=== PATIENT | female | born 1955 | race African-American/Black ===

== ENCOUNTER 2021-11-22 18:20 | Emergency (ER) | payer MEDICAID ==
[~2021-11-22] VITALS: Ht 154.9 cm; Wt 64.9 kg
[2021-11-22 18:31] VITALS: BP 186/94
--- NOTE | 2021-11-22 18:31 | NUR ---
PT CARLOS ENRIQUE LIANG, VIA GURNEY TO BED 03.
--- NOTE | 2021-11-22 19:27 | NUR ---
Pt report given to POWER Walker. Transfer of care at this time.
--- NOTE | 2021-11-22 19:54 | NUR ---
Dr. Mcgill examining patient.
[2021-11-22] MEDS ORDERED: MORPHINE SULFATE 4 MG/ML SYR IVP ONE ×2 (20:35→22:35)
--- NOTE | 2021-11-22 20:45 | NUR ---
Patient resting comfortably in bed, no c/o pain or s/s of discomfort, chest rise and fall symmetrical.
[2021-11-22 20:53] LABS: BASOPHILS # (AUTO) 0.1 K/uL (0.00-0.22); BASOPHILS % (AUTO) 0.7 % (0.0-2.0); EOSINOPHILS # (AUTO) 0.2 K/uL (0-0.4); EOSINOPHILS % (AUTO) 2.2 % (0.0-4.0); HEMATOCRIT 21.4 % (36-48); HEMOGLOBIN 7.5 g/dL (12.0-16.0); LYMPHOCYTES % (AUTO) 21.5 % (20.5-51.1); MEAN CORPUSCULAR HEMOGLOBIN 31 pg (27-31); MEAN CORPUSCULAR HGB CONC 35 g/dL (33-37); MEAN CORPUSCULAR VOLUME 88.1 fL (80-94); MONOCYTES # (AUTO) 0.8 K/uL (0.8-1.0); MONOCYTES % (AUTO) 9.1 % (1.7-9.3); NEUTROPHILS # (AUTO) 6.1 K/uL (1.8-7.7); NEUTROPHILS % (AUTO) 66.5 % (42.2-75.2); PLATELET COUNT (AUTO) 298 K/uL (140-450); RED BLOOD CELL COUNT(AUTO) 2.43 MIL/uL (4.20-5.40); RED CELL DISTRIBUTION WIDTH 15.2 % (11.6-13.7); WHITE BLOOD COUNT (AUTO) 9.1 K/uL (4.8-10.8)
[2021-11-22 21:18] LABS: ALBUMIN 2.4 g/dL (3.4-5.0); ANION GAP 12.8 (8-16); POTASSIUM 3.8 mmol/L (3.5-5.1); TOTAL BILIRUBIN 0.2 mg/dL (0.0-1.0)
[2021-11-22 21:19] LABS: CREATININE 6.1 mg/dL (0.6-1.3)
[2021-11-22] MEDS ORDERED: cefTRIAXone 1,000 MG in DEXT 5% MINI-BAG PLUS 50 ML IV ONE (21:30)
--- NOTE | 2021-11-22 21:30 | NUR ---
Patient resting comfortably in bed, no c/o pain or s/s of discomfort, chest rise and fall symmetrical.
[2021-11-22] MEDS ORDERED: cefTRIAXone 1,000 MG VIAL ONE (22:20)
--- NOTE | 2021-11-22 22:59 | NUR ---
Patient resting comfortably in bed, no c/o pain or s/s of discomfort, chest rise and fall symmetrical.
--- NOTE | 2021-11-22 23:10 | NUR ---
Patient resting comfortably in bed, no c/o pain or s/s of discomfort, chest rise and fall symmetrical.
--- NOTE | 2021-11-23 00:54 | NUR ---
Patient resting comfortably in bed, no c/o pain or s/s of discomfort, chest rise and fall symmetrical.
--- NOTE | 2021-11-23 01:25 | NUR ---
ER Physician, Dr. Sawyer, informed about patient's BP and medical history, including latest BP of 185/104. Dr. Sawyer asked for blood pressure mediction throughout shift. Dr. Sawyer verbalized understanding of BP and medical history, no new orders.
--- NOTE | 2021-11-23 01:25 | NUR ---
Note undone in [facility] - 11/23/21 at 0159 by [email or web address] ER Physician, Dr. Sawyer, informed about patient's BP and medical history. Dr. Sawyer repeadetly asked for blood pressure mediction. Dr. Sawyer verbalized understanding of BP and medical history, stated he "does not want to order blood pressure medication, no new orders. Addendum: 11/23/21 at 0127 by [email or web address] Amendment undone in [facility] - 11/23/21 at 0159 by [email or web address] ER Physician, Dr. Sawyer, informed about patient's BP and medical history, including latest BP of 185/104. Dr. Sawyer repeadetly asked for blood pressure mediction. Dr. Sawyer verbalized understanding of BP and medical history, stated he "does not want to order blood pressure medication, no new orders.
[2021-11-23] MEDS ORDERED: CLONIDINE HYDROCHLORIDE 0.1 MG TAB PO ONE (01:40)
--- NOTE | 2021-11-23 01:41 | NUR ---
Patient to be transferred to [facility]. Is being transferred due to insurance. Receiving facility has accepting physician and available space. ER physician has signed transfer form. Patient or responsible democrat has agreed to transfer and signed form. Patient belongings inventoried and will be sent with patient. Copy of nursing notes, lab reports, EKG, Physicians Orders and X-rays to be sent with patient. Report called to Maribel STEVE at receiving facility. [facility] ambulance service has been called for transfer. ETA is 45.
[2021-11-23] MEDS ORDERED: HUM SUBQ (02:12)
[2021-11-23] MEDS ORDERED: CLON2TAB PO (02:12)
--- NOTE | 2021-11-23 02:43 | NUR ---
[facility] TRANSPORT AT BEDSIDE
--- NOTE | 2021-11-23 02:45 | NUR ---
[facility] ambulance arrived to transfer patient to [facility]. All information given to [facility] ambulance staff. Patient IV intact, skin intact, A/Ox4, chest rise and fall symmetrical. Patient left with all belongings and patient was safely transferrred to ambulance vehicle. Receiving nurse, Maribel STEVE, called and informed of all transfer information. Maribel STEVE verbalized understanding, no new questions. All transfer documents and radiology CD sent with patient.
[2021-11-23 02:48] VITALS: BP 160/85
== END 2021-11-23 02:45 | disposition short-term general hospital (02) ==
LOC: MED 18:20
DX: J18.9 Pneumonia, unspecified organism (principal); Z20.822 Contact with and (suspected) exposure to COVID-19; I10 Essential (primary) hypertension; E11.9 Type 2 diabetes mellitus without complications; Z79.1 Long term (current) use of non-steroidal anti-inflammatories (NSAID); Z79.4 Long term (current) use of insulin; Z79.899 Other long term (current) drug therapy; Z90.710 Acquired absence of both cervix and uterus; Z98.890 Other specified postprocedural states
CPT/HCPCS: 36415; 70450; 71045; 80053; 83605; 83880; 84484; 85025; 87040; 87426; 93005; 96365; 96375; 96376; 99285; J0696; J2270; Q0092

== ENCOUNTER 2022-01-31 13:54 | Emergency (ER) | payer MEDICAID ==
[~2022-01-31] VITALS: Ht 157.5 cm; Wt 63.5 kg
[~2022-01-31 13:54] MED LIST: CLON2TAB PO; HUM SUBQ
--- NOTE | 2022-01-31 13:55 | NUR ---
[facility] TO ER BED 4
[2022-01-31 13:57] VITALS: BP 178/77
--- NOTE | 2022-01-31 14:20 | NUR ---
66/F BIBA FROM HOME C/O SHORTNESS OF BREATH ONSET LAST MONDAY THAT GOT WORSE TODAY. PT REPORTS MISSING DIALYSIS ON MONDAY AND TODAY D/T DIFFICULTY BREATHING AND DIZZINESS. PT PLACED ON BIPAP WITH FIO2 OF 40% AND 10L AND SATTING 100%. PT TOLERATING WELL. PT ALSO REPORTS BEING DC RECENTLY FOR PNA. AFEBRILE AT TRIAGE. AAO4. 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
--- NOTE | 2022-01-31 14:26 | NUR ---
IV ESTABLISHED TO RIGHT AC WITH 20G. BLOOD DRAWN.
[2022-01-31] MEDS ORDERED: VANCOMYCIN 1,000 MG in DEXTROSE 5% 250 ML IV ONE (14:35)
[2022-01-31] MEDS ORDERED: PIPERACILLIN/TAZOBACTAM 2.25 GM in DEXTROSE 5% 50 ML IV ONE (14:35)
[2022-01-31] MEDS ORDERED: ALBUTEROL SULFATE/IPRATROPIU 3 ML SOL IH ONE (14:35)
[2022-01-31] MEDS ORDERED: methylPREDNISolone SS 125 MG/2 ML VIAL IVP ONE (14:35)
[2022-01-31 14:59] LABS: BASOPHILS # (AUTO) 0.1 K/uL (0.00-0.22); BASOPHILS % (AUTO) 0.7 % (0.0-2.0); EOSINOPHILS # (AUTO) 0.1 K/uL (0-0.4); EOSINOPHILS % (AUTO) 1.2 % (0.0-4.0); HEMATOCRIT 28.3 % (36-48); HEMOGLOBIN 9.3 g/dL (12.0-16.0); LYMPHOCYTES # (AUTO) 1.5 K/uL (2.5-16.5); LYMPHOCYTES % (AUTO) 17.8 % (20.5-51.1); MEAN CORPUSCULAR HEMOGLOBIN 30 pg (27-31); MEAN CORPUSCULAR HGB CONC 33 g/dL (33-37); MEAN CORPUSCULAR VOLUME 90.3 fL (80-94); MONOCYTES # (AUTO) 0.6 K/uL (0.8-1.0); MONOCYTES % (AUTO) 6.8 % (1.7-9.3); NEUTROPHILS # (AUTO) 6.2 K/uL (1.8-7.7); NEUTROPHILS % (AUTO) 73.5 % (42.2-75.2); PLATELET COUNT (AUTO) 237 K/uL (140-450); RED BLOOD CELL COUNT(AUTO) 3.14 MIL/uL (4.20-5.40); RED CELL DISTRIBUTION WIDTH 15.4 % (11.6-13.7); WHITE BLOOD COUNT (AUTO) 8.4 K/uL (4.8-10.8)
[2022-01-31] MEDS ORDERED: PIPERACILLIN/TAZOBACTAM 2.25 GM VIAL IV ONE (15:11)
[2022-01-31 15:33] LABS: ALBUMIN 2.4 g/dL (3.4-5.0); ANION GAP 23.6 (8-16); CARBON DIOXIDE 21.3 mmol/L (21-32); POTASSIUM 4.9 mmol/L (3.5-5.1); TOTAL BILIRUBIN 0.3 mg/dL (0.0-1.0)
[2022-01-31 15:36] LABS: CREATININE 12.9 mg/dL (0.6-1.3)
[2022-01-31] MEDS ORDERED: FUROSEMIDE 40 MG/4 ML VIAL IVP ONE (15:40)
[2022-01-31] MEDS ORDERED: NITROGLYCERIN 0.4 MG TAB SL ONE (15:50)
--- NOTE | 2022-01-31 15:55 | NUR ---
COVID AND FLU SWAB COLLECTED AND SENT TO LAB
[2022-01-31] MEDS ORDERED: VANCOMYCIN 1,000 MG VIAL ONE (15:56)
--- NOTE | 2022-01-31 16:41 | NUR ---
PER DOCTOR/HOSPITALIST THE PATIENT CAN NOT BE ON BIPAP TO BE TRANSFERRED. DOCTOR ASKED TO HAVE PATIENT TITRATED TO NC. PLACED PATIENT ON NASAL CANNULA AT 5L WITH BUBBLE HUMIDIFIER. PATIENT SATING AT 96% AND BIPAP ON STANDBY AT BEDSIDE.
--- NOTE | 2022-01-31 16:42 | NUR ---
SPOKE WITH JR FROM [facility]. PER JR, PT GOING TO [facility] TO ROOM 217-A. NUMBER FOR REPORT IS [phone]. PER JR, WILL CALL BACK WITH TRANSPORT INFORMATION.
[2022-01-31 17:10] VITALS: BP 160/81
--- NOTE | 2022-01-31 17:35 | NUR ---
Patient to be transferred to [facility]. Is being transferred due to INSURANCE. Receiving facility has accepting physician and available space. ER physician has signed transfer form. Patient or responsible libertarian has agreed to transfer and signed form. Patient belongings inventoried and will be sent with patient. Copy of nursing notes, lab reports, EKG, Physicians Orders and X-rays to be sent with patient. Report called to ALEX SALESPERSON [employer] at receiving facility. [facility] ambulance service has been called for transfer.[facility] TRANSFERRED OUT
== END 2022-01-31 17:35 | disposition short-term general hospital (02) ==
LOC: MED 13:54
DX: J44.1 Chronic obstructive pulmonary disease with (acute) exacerbation (principal); Z20.822 Contact with and (suspected) exposure to COVID-19; N18.6 End stage renal disease; E87.70 Fluid overload, unspecified; E11.9 Type 2 diabetes mellitus without complications; I10 Essential (primary) hypertension; I50.9 Heart failure, unspecified; Z99.2 Dependence on renal dialysis; Z79.4 Long term (current) use of insulin; Z79.899 Other long term (current) drug therapy
CPT/HCPCS: 36415; 36600; 71045; 80053; 82550; 82553; 82803; 83605; 83880; 84484; 85025; 85610; 85730; 87040; 87426; 87804; 93005; 94640; 94760; 96365; 96366; 96367; 96375; 99291; J1940; J2543; J2930; J3370; Q0092

== ENCOUNTER 2022-02-24 13:49 | Emergency (ER) | payer MEDICAID ==
[~2022-02-24] VITALS: Ht 160 cm; Wt 81.6 kg
[2022-02-24 13:50] VITALS: BP 131/57
--- NOTE | 2022-02-24 13:50 | NUR ---
PT BIBA TO BED 11
[2022-02-24 13:53] VITALS: BP 131/57
--- NOTE | 2022-02-24 13:53 | NUR ---
66/F BIBA FROM HOME C/O B/L LEG SWELLING. PT STATES SHE MISSED HER DIALYSIS YESTERDAY. DENIES SOB OR CHEST PAIN. AAO4, AMBULATORY, VITALS STABLE. 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 PMH: COPD, CHF, DIALYSIS MON,MON,FRI
--- NOTE | 2022-02-24 14:09 | NUR ---
IV ESTABLISHED TO RIGHT FA WITH 20G.
--- NOTE | 2022-02-24 14:10 | NUR ---
COVID SWAB COLLECTED
--- NOTE | 2022-02-24 14:13 | NUR ---
[employer]ANCH EMPLOYMENT COORDINATOR AT BEDSIDE FOR BLOOD DRAW
[2022-02-24 14:33] LABS: BASOPHILS # (AUTO) 0.1 K/uL (0.00-0.22); BASOPHILS % (AUTO) 1.1 % (0.0-2.0); EOSINOPHILS # (AUTO) 0.1 K/uL (0-0.4); EOSINOPHILS % (AUTO) 1.4 % (0.0-4.0); HEMATOCRIT 27.2 % (36-48); HEMOGLOBIN 8.9 g/dL (12.0-16.0); LYMPHOCYTES # (AUTO) 1.8 K/uL (2.5-16.5); MEAN CORPUSCULAR HEMOGLOBIN 30 pg (27-31); MEAN CORPUSCULAR HGB CONC 33 g/dL (33-37); MEAN CORPUSCULAR VOLUME 90.8 fL (80-94); MONOCYTES # (AUTO) 0.7 K/uL (0.8-1.0); MONOCYTES % (AUTO) 9.2 % (1.7-9.3); NEUTROPHILS # (AUTO) 4.9 K/uL (1.8-7.7); NEUTROPHILS % (AUTO) 64.3 % (42.2-75.2); PLATELET COUNT (AUTO) 176 K/uL (140-450); RED BLOOD CELL COUNT(AUTO) 2.99 MIL/uL (4.20-5.40); WHITE BLOOD COUNT (AUTO) 7.6 K/uL (4.8-10.8)
[2022-02-24 15:18] LABS: ALBUMIN 2.4 g/dL (3.4-5.0); ANION GAP 17.1 (8-16); ASPARTATE AMINOTRANSFERASE 17 U/L (15-37); CARBON DIOXIDE 27.8 mmol/L (21-32); CHLORIDE 104 mmol/L (98-107); GFR ARICAN-AMERICAN 5 mL/min (>90); GLUCOSE 138 mg/dL (74-106); MAGNESIUM 1.4 mg/dL (1.8-2.4); POTASSIUM 4.9 mmol/L (3.5-5.1); SODIUM SERUM 144 mmol/L (136-145); TOTAL BILIRUBIN 0.2 mg/dL (0.0-1.0)
[2022-02-24 15:21] LABS: CREATININE 10.8 mg/dL (0.6-1.3); UREA NITROGEN, BLOOD 76 mg/dL (7-18)
[2022-02-24] MEDS ORDERED: AMLO10TA PO (15:58)
[2022-02-24] MEDS ORDERED: PANT40EC PO (15:58)
[2022-02-24] MEDS ORDERED: CARV12.5 PO (15:58)
[2022-02-24] MEDS ORDERED: FURO-570 PO (15:58)
[2022-02-24] MEDS ORDERED: ASPI-1822 PO (15:58)
[2022-02-24] MEDS ORDERED: CALC667T8 PO (15:58)
[2022-02-24] MEDS ORDERED: DOCU-299 PO (15:58)
[2022-02-24] MEDS ORDERED: LEVA0.6318 INH (15:58)
[2022-02-24 16:48] VITALS: BP 137/66
--- NOTE | 2022-02-24 18:07 | NUR ---
GAVE REPORT TO KELBY STEVE AT [facility]. ETA FOR TRANSPORT TO [place] IS 1999 TODAY
--- NOTE | 2022-02-24 18:12 | NUR ---
PATIENT WILL BE ADMITED TO [facility] BED 211A, GAVE REPORT TO KELBY STEVE @ [facility] NUMBER FOR REPORT GIVEN: [phone] PER KELBY, PLEASE NOTIFIY EMT TO STOP BY ADMITING BEFORE DROPOFF.
--- NOTE | 2022-02-24 19:15 | NUR ---
Patient to be transferred to [facility]. Is being transferred due to INSURANCE. Receiving facility has accepting physician and available space. ER physician has signed transfer form. Patient or responsible democrat has agreed to transfer and signed form. Patient belongings inventoried and will be sent with patient. Copy of nursing notes, lab reports, EKG, Physicians Orders and X-rays to be sent with patient. Report called to KELBY STEVE at receiving facility. [facility] ambulance FOR TRANSPORT
== END 2022-02-24 19:15 | disposition short-term general hospital (02) ==
LOC: MED 13:49
DX: R07.89 Other chest pain (principal); Z20.822 Contact with and (suspected) exposure to COVID-19; M79.89 Other specified soft tissue disorders; E11.22 Type 2 diabetes mellitus with diabetic chronic kidney disease; I13.2 Hypertensive heart and chronic kidney disease with heart failure and with stage 5 chronic kidney disease, or end stage renal disease; N18.6 End stage renal disease; J44.9 Chronic obstructive pulmonary disease, unspecified; I10 Essential (primary) hypertension; Z79.82 Long term (current) use of aspirin; Z90.710 Acquired absence of both cervix and uterus; Z99.2 Dependence on renal dialysis; Z79.899 Other long term (current) drug therapy; Z88.6 Allergy status to analgesic agent; Z88.8 Allergy status to other drugs, medicaments and biological substances; Z79.4 Long term (current) use of insulin; Z98.890 Other specified postprocedural states
CPT/HCPCS: 36415; 71045; 80053; 83735; 84484; 85025; 87426; 93005; 99285; Q0092

== ENCOUNTER 2022-03-14 12:40 | Emergency (ER) | payer MEDICAID ==
[~2022-03-14] VITALS: Ht 154.9 cm; Wt 66.2 kg
[~2022-03-14 12:40] MED LIST changes: +AMLO10TA PO; +ASPI-1822 PO; +CALC667T8 PO; +CARV12.5 PO; +DOCU-299 PO; +FURO-570 PO; +LEVA0.6318 INH; +PANT40EC PO
[2022-03-14 12:45] VITALS: BP 199/75
--- NOTE | 2022-03-14 12:56 | NUR ---
PATIENT PRESENTS TO ED WITH COLD SYMPTOMS . PT STATES SHE HAS BEEN FEELING COLD/FLU SYMPTOMS SINCE YESTERDAY . DENIES N/V/D; SKIN IS PINK/WARM/DRY; AAOX4 WITH EVEN AND STEADY GAIT; LUNGS CLEAR BL; HR EVEN AND REGULAR; PT DENIES ANY FEVER, CP, SOB, OR COUGH AT THIS TIME; PATIENT STATES PAIN OF 0/10 AT THIS TIME; VSS; PATIENT POSITIONED FOR COMFORT; HOB ELEVATED; BEDRAILS UP X2; BED DOWN. ER MD MADE AWARE OF PT STATUS.
[2022-03-14] MEDS ORDERED: ONDANSETRON 4 MG/2 ML VIAL IVP ONE (13:05)
[2022-03-14 13:32] LABS: BASOPHILS # (AUTO) 0.1 K/uL (0.00-0.22); EOSINOPHILS # (AUTO) 0.1 K/uL (0-0.4); EOSINOPHILS % (AUTO) 1.4 % (0.0-4.0); HEMATOCRIT 27.3 % (36-48); LYMPHOCYTES # (AUTO) 2.1 K/uL (2.5-16.5); LYMPHOCYTES % (AUTO) 20.8 % (20.5-51.1); MEAN CORPUSCULAR HEMOGLOBIN 29 pg (27-31); MEAN CORPUSCULAR HGB CONC 33 g/dL (33-37); MEAN CORPUSCULAR VOLUME 88.8 fL (80-94); MONOCYTES # (AUTO) 0.8 K/uL (0.8-1.0); MONOCYTES % (AUTO) 7.5 % (1.7-9.3); NEUTROPHILS % (AUTO) 69.3 % (42.2-75.2); PLATELET COUNT (AUTO) 248 K/uL (140-450); RED BLOOD CELL COUNT(AUTO) 3.07 MIL/uL (4.20-5.40); RED CELL DISTRIBUTION WIDTH 16.6 % (11.6-13.7); WHITE BLOOD COUNT (AUTO) 10.2 K/uL (4.8-10.8)
[2022-03-14 13:52] LABS: RSV Negative (NEGATIVE)
[2022-03-14 14:04] LABS: LIPASE 71 U/L (73-393)
[2022-03-14 14:25] LABS: ALBUMIN 2.3 g/dL (3.4-5.0); ANION GAP 23.1 (8-16); CARBON DIOXIDE 21.5 mmol/L (21-32); POTASSIUM 5.6 mmol/L (3.5-5.1); TOTAL BILIRUBIN 0.3 mg/dL (0.0-1.0)
[2022-03-14 14:27] LABS: CREATININE 12.9 mg/dL (0.6-1.3)
[2022-03-14] MEDS ORDERED: DEXTROSE 50% 50 ML SYR IVP ONE (15:10)
[2022-03-14] MEDS ORDERED: CALCIUM GLUCONATE 10% 1000 MG/10 ML VIAL IVP ONE (15:10)
[2022-03-14] MEDS ORDERED: INSULIN REGULAR, HUMAN 100 UNIT/ML VIAL IVP ONE (15:10)
[2022-03-14] MEDS ORDERED: SODIUM ZIRCONIUM CYCLOSILICATE 10 GM POWD.PACK PO ONE (15:10)
[2022-03-14] MEDS ORDERED: CALCIUM GLUC 1 GM/50 mL NS BAG 50 ML IV ONE ×2 (15:49→15:55)
[2022-03-14] MEDS ORDERED: hydrALAZINE 20 MG/ML VIAL IVP ONE (16:00)
--- NOTE | 2022-03-14 17:00 | NUR ---
Patient to be transferred to [facility]. Receiving facility has accepting physician and available space. ER physician has signed transfer form. Patient or responsible democrat has agreed to transfer and signed form. Patient belongings inventoried and will be sent with patient. Copy of nursing notes, lab reports, EKG, Physicians Orders and X-rays to be sent with patient. Report called to chelsea Church at receiving facility. [facility] ambulance service has been called for transfer. ETA is 1830.
[2022-03-14] MEDS ORDERED: CLONIDINE HYDROCHLORIDE 0.1 MG TAB PO ONE (17:25)
--- NOTE | 2022-03-14 18:11 | NUR ---
PATIENT SITTING UP IN BED, PROVIDED WITH LUNCH TRAY. PLAN OF CARE ONGOING
--- NOTE | 2022-03-14 19:03 | NUR ---
PATIENT PICKED UP BY [facility] FOR TRANSFER TO [facility]. LEFT ED WITH NO INCIDENT. PATIENT AWARE AND AGREEABLE TO PLAN OF CARE.
[2022-03-14 19:04] VITALS: BP 177/89
== END 2022-03-14 19:03 | disposition short-term general hospital (02) ==
LOC: MED 12:40
DX: J81.1 Chronic pulmonary edema (principal); Z20.822 Contact with and (suspected) exposure to COVID-19; E87.70 Fluid overload, unspecified; E11.22 Type 2 diabetes mellitus with diabetic chronic kidney disease; I13.2 Hypertensive heart and chronic kidney disease with heart failure and with stage 5 chronic kidney disease, or end stage renal disease; N18.6 End stage renal disease; J44.9 Chronic obstructive pulmonary disease, unspecified; Z99.2 Dependence on renal dialysis; Z79.4 Long term (current) use of insulin; Z79.899 Other long term (current) drug therapy; Z88.1 Allergy status to other antibiotic agents; Z88.6 Allergy status to analgesic agent; Z88.8 Allergy status to other drugs, medicaments and biological substances
CPT/HCPCS: 36415; 71045; 80053; 82550; 83690; 83880; 84484; 85025; 87420; 87426; 87804; 93005; 96374; 96375; 99285; J0360; J0610; J1815; J2405; Q0092